=== PATIENT | female | born 1990 | race Caucasian/White ===

== ENCOUNTER 2023-03-03 01:08 | Emergency (ER) | payer OTHER ==
[~2023-03-03] VITALS: Ht 162.6 cm; Wt 95.3 kg
[2023-03-03 02:40] VITALS: BP 135/92; TEMP 98
[2023-03-03] MEDS: ACETAMINOPHEN 325 MG TABLET PO ONE (02:51)
[2023-03-03] MEDS ORDERED: ACETAMINOPHEN 325 MG TABLET ONE (02:52)
[2023-03-03 02:55] VITALS: O2SAT 98
== END 2023-03-03 03:03 | disposition home or self-care (01) ==
LOC: ER 01:12
DX: O26.899 Other specified pregnancy related conditions, unspecified trimester (principal); L29.9 Pruritus, unspecified; Z3A.00 Weeks of gestation of pregnancy not specified